=== PATIENT | female | born 1965 | race Two or more races ===

== ENCOUNTER 2025-06-17 16:17 | Inpatient (IN) | payer MEDICAID ==
[~2025-06-17] VITALS: Ht 160 cm; Wt 87.5 kg
[~2025-06-17 16:17] MED LIST: CEPH500C PO
--- NOTE | 2025-06-17 17:33 | DVH ---
EXAM: CT HEAD WITHOUT CONTRAST INDICATION: syncope TECHNIQUE: CT of the head without intravenous contrast. Radiation Dose : 1. Head: CT Dose: CTDI volume is 48.66 mGy. Dose-length product is 780.23 mGy*cm The dose indicators for CT are the volume Computed Tomography (CT) Dose Index (CTDIvol) and the Dose Length Product (DLP), and are measured in units of mGy and mGy-cm, respectively. These indicators are not patient dose, but values generated from the CT scanner acquisition factors. The report includes radiation exposure data for exposures received during this examination. COMPARISON: XY NASAL BONES 3+VIEWS on DOS: 09/01/23 FINDINGS: Evaluation is degraded by motion artifact. No acute territorial infarct, intracranial hemorrhage, or mass effect. There are global involutional changes with compensatory prominence of the ventricles and sulci. Patchy periventricular and subcorti mc white matter hypoattenuation is nonspecific but may be related to small vessel ischemic disease. The orbits are normal. There are fluid levels within the sphenoid sinuses. The paranasal sinuses and mastoid air cells are otherwise clear. The osseous structures are unremarkable. IMPRESSION: 1. No acute territorial infarct, intracranial hemorrhage, or mass effect. 2. Sphenoid sinus disease. 3. Age-related involutional changes. Chronic microvascular changes. 4. If clinical symptoms persist, MRI may be beneficial in further evaluation. Radiation optimization: All CT scans at this facility use at least one of these dose optimization mejia hniques: automated exposure control mA and/or kV adjustment per patient size (includes targeted exam s where dose is matched to clinical indication) or iterative reconstruction.
--- NOTE | 2025-06-17 17:34 | ED.PDOC ---
History of Present Illness HPI Comments 60-YEAR-OLD FEMALE PRESENTS TO THE CHIEF COMPLAINT OF A SYNCOPE. PATIENT REPORTS ON TAKING OZEMPIC FIVE DAYS AGO AND WAS OUT OF BEING QUITE HIGH LAST NIGHT WHEN SHE WAS SWEATING PROFUSELY. PATIENT HAS STARTED TO HAVE DIZZINESS AND WAS UNABLE TO SPEAK WELL WITH A SYNCOPAL EPISODE FAMILY WITNESSES. WHEN THE PATIENT WOKE UP FROM THERE SYNCOPAL EPISODE THEY INFORMED THE PATIENT THAT THEY RETURN A WEEK WRAPPED DUE FROM HER SHAKING PROFUSELY. AFTER THE SYNCOPAL EPISODE WITH THE PATIENT HAD AN EMESIS AND FELT BETTER BUT WAS TOLD DIZZY. PATIENT STATES ON GOING HOME AND TAKING NAUSEA MEDICATIONS. DENIES CHILLS, FEVER, /D, SOB, CP. NO OTHER ASSOCIATED SYMPTOMS, MODIFIERS, RECENT INJURIES OR SICK CONTACTS PRESENT AT THIS TIME. Chief Complaint: Syncope Time Seen by MD: 17:30 Primary Care Provider: JOLEEN Reviewed Notes: Nurses Notes, Medications, Allergies Allergies: Coded Allergies: Morphine (Verified Allergy, Unknown, 09/01/23) Home Meds Active Scripts Cephalexin Monohydrate (Cephalexin) 500 Mg Cap, 1 CAP PO QID, #32 CAP Prov:AMARA NORRIS 09/01/23 Information Source: Patient Mode of Arrival: Ambulatory Severity: Moderate Timing: Hours Duration: Since onset, Hours Prehospital treatment: None Past Medical History PAST MEDICAL HISTORY: Denies Surgical History: Denies all surgeries [employer] PSYCHOLOGIST History: No Pertinent [employer] PSYCHOLOGIST History Family History Family History: Reviewed,noncontributory to illness, Unknown Social History Smoker: Non-Smoker Alcohol: Denies ETOH Use Drugs: Denies Drug Use Lives In: Home Constitutional: denies: chills, diaphoresis, fatigue, fever, malaise, sweats, weakness, others EENTM: denies: blurred vision, double vision, ear bleeding, ear discharge, ear drainage, ear pain, ear ringing, eye pain, eye redness, hearing loss, mouth pain, mouth swelling, nasal discharge, nose bleeding, nose congestion, nose pain, photophobia, tearing, throat pain, throat swelling, voice changes, others Respiratory: denies: cough, hemoptysis, orthopnea, SOB at rest, shortness of breath, SOB with excertion, stridor, wheezing, others Cardiovascular: reports: syncope; denies: chest pain, dizzy spells, diaphoresis, Dyspnea on exertion, edema, irregular heart beat, left arm pain, lightheadedness, palpitations, PND, others Gastrointestinal: reports: nausea, vomiting; denies: abdomen distended, abdominal pain, blood streaked bowels, constipated, diarrhea, dysphagia, difficulty swallowing, hematemesis, melena, poor appetite, poor fluid intake, rectal bleeding, rectal pain, others Genitourinary: denies: abnormal vagina bleeding, burning, dyspareunia, dysuria, flank pain, frequency, hematuria, incontinence, pain, , vagina discharge, urgency, others Neurological: denies: dizziness, fainting, headache, left sided numbness, left sided weakness, numbness, paresthesia, pre-existing deficit, right sided numbness, right sided weakness, seizure, speech problems, tingling, tremors, weakness, others Musculoskeletal: denies: back pain, gout, joint pain, joint swelling, muscle pain, muscle stiffness, neck pain, others Integumetry: denies: bruises, change in color, change in hair/nails, dryness, laceration, lesions, lumps, rash, wounds, others Allergic/Immunocompromised: denies: Difficulty Healing, Frequent Infections, Hives, Itching, others Hematologic/Lymphatic: denies: anemia, blood clots, easy bleeding, easy bruising, swollen glands, others Endocrine: denies: excessive hunger, excessive sweating, excessive thirst, excessive urination, flushing, intolerance to cold, intolerance to heat, unexplained weight gain, unexplained weight loss, others Psychiatric: denies: anxiety, bipolar disorder, depression, hopeless, panic disorder, schizophrenia, sleepless, suicidal, others All Other Systems: Reviewed and Negative Physical Exam General Appearance: No Apparent Distress, Normal HEENT: Normal ENT Inspection, Pharynx Normal, TMs Normal Neck: Full Range of Motion, Non-Tender, Normal, Normal Inspection Respiratory: Chest Non-Tender, Lungs Clear, No Accessory Muscle Use, No Respiratory Distress, Normal Breath Sounds Cardiovascular: No Edema, No JVD, No Murmur, No Gallop, Normal Peripheral Pulses, Regular Rate/Rhythm Breast Exam: Deferred Gastrointestinal: No Organomegaly, Non Tender, No Pulsatile Mass, Normal Bowel Sounds, Soft Genitalia: Deferred Pelvic: Deferred Rectal: Deferred Extremities: No calf tenderness, Normal capillary refill, Normal inspection, Normal range of motion, Non-tender, No pedal edema Musculoskeletal : Apperance: Normal Neurologic: Alert, finisher hand II-XII nml as Tested, No Motor Deficits, Normal Affect, Normal Mood, No Sensory Deficits Cerebellar Function: Normal Reflexes: Normal Skin: Dry, Normal Color, Warm Lymphatic: No Adenopathy Was a procedure done? Was a procedure done?: No X-Ray, Labs, Meds, VS Vital Signs Date Time Temp Pulse Resp B/P (MAP) Pulse Ox O2 Delivery O2 Flow Rate FiO2 06/17/25 16:20 98.1 95 16 150/69 97 98.1 Time of 1ST Reevaluation: 18:00 Reevaluation 1ST: Unchanged Patient Education/Counseling: Diagnosis, Treatment, Prognosis Family Education/Counseling: No Family Present SEPSIS Sepsis Screen Date sepsis recognized/suspect: Jun 17, 2025 Time Sepsis recognized/suspect: 1624 Recent Procedure: No On Antibiotic Therapy: No Respiratory Rate >20: No Heart Rate >90: No Temp<36 C (96.8 F) or >38.3 C: No SBP <90 or MAP <65 mmHG: No New Acute Mental Status Change: No Is the patient on CPAP, BIPAP,: No Physician Orders Basic Metabolic Panel (06/17/25 16:36) Complete Blood Count (06/17/25 16:36) Troponin-I Hs (06/17/25 16:36) Urinalysis (06/17/25 16:36) Head Without Contrast (06/17/25 16:36) Electrocardigram (06/17/25 16:36) Chest Portable (06/17/25 16:36) Troponin-I Hs (06/17/25 17:36) Troponin-I Hs (06/17/25 19:36) Electrocardigram (06/17/25 17:36) Electrocardigram (06/17/25 19:36) Vital Signs Date Time Temp Pulse Resp B/P (MAP) Pulse Ox O2 Delivery O2 Flow Rate FiO2 06/17/25 16:20 98.1 95 16 150/69 97 98.1 Critical Care Note Critical Care Time?: No Stability Stability form required: No I personally scribed for MARQUES GUERRA MD ([email or web address]) on 06/17/25 at 17:34. Electronically submitted by Charan Dumont ([email or web address]). MARQUES GUERRA MD Jun 17, 2025 17:34
--- NOTE | 2025-06-17 17:53 | DVH ---
CHEST RADIOGRAPH Indication: syncope Technique: Single frontal view of the chest was obtained COMPARISON: None FINDINGS: Lines and Tubes: None Lungs: Clear Pleura: No effusion. No pneumothorax. Cardiomediastinal contours: Unremarkable Bones: Unremarkable IMPRESSION: No acute disease.
[2025-06-17 18:13] LABS: Hematocrit 38.7 % (36.0-46.0); Hemoglobin 13.2 g/dL (12.2-16.2); Mean Corpuscular Hemoglobin 30.5 pg (28.0-32.0); Mean Corpuscular Volume 89.6 fL (80.0-100.0); Nucleated Red Blood Cells % 0.0 %
[2025-06-17 18:19] LABS: Chloride 101 mmol/L (98-107); Potassium 3.6 mmol/L (3.5-5.1); Sodium 142 mmol/L (136-145)
[2025-06-17 18:20] LABS: Anion Gap 10 (5-15); Calcium 9.6 mg/dL (8.7-10.4); Carbon Dioxide 31 mmol/L (20-31)
[2025-06-17 18:23] LABS: Urine Budding Yeast OCCASIONAL /hpf (None Seen); Urine Protein, UAD TRACE (Negative)
[2025-06-17 18:25] LABS: BUN/Creatinine Ratio 20.0 (10.0-20.0); Glucose 88 mg/dL (74-106)
[2025-06-17 18:35] LABS: Blood Urea Nitrogen 27 mg/dL (9-23)
--- NOTE | 2025-06-17 20:34 | DVHHPRES ---
History of Present Illness Resident Creating Document: JAMMIE HWANG RESIDENT History of Present Illness This is a 60-year-old female with past medical history of hypertension, sciatica, osteoarthritis, chronic lower back pain, prediabetes, recurrent UTIs, presented to the ER with chief complain of dizziness since 1 day. Yesterday, she reported experiencing sweating, dizziness, followed by an episode of loss of consciousness. The episode was witnessed by the boyfriend, who elaborated further that she started sweating and was about to collapse but prevented from falling and hitting head by boyfriend. She exhibited shaking movements lasting for approximately 7 minutes, following this she regained consciousness without postictal confusion. She had 1 episode of vomiting. No tongue biting, urinary or incontinence or other stigmata of seizure was reported. The paramedics noted blood glucose 160, BP WNL. The patient also had burning micturition associated with nausea, chills since 1 day. She also complained of abdominal pain which started 1 week ago. The pain is located in the lower abdomen, described as cramping, 7/10, without aggravating or relieving factors. She has significant history of recurrent UTIs in the past, the most recent one was 5 months back for which she was treated with Keflex, after suboptimal response with Levaquin. Denies fever, hematuria, kidney stones. Previous hospitalization: 2 years back for UTI PMHx: Hypertension, sciatica, osteoarthritis, chronic lower back pain, prediabetes, recurrent UTIs PSHx: Appendectomy, benign cyst removal in left shoulder and right wrist Social history: Denies smoking, recreational drugs, occasional alcohol use. Currently sexually active with boyfriend. Full code, next of kin boyfriend (Danielito) Home medication: Ozempic, fexofenadine, docusate, Farxiga,Ztlido, lisinopril, baclofen, tramadol, naproxen, simethicone, cephalexin 500 mg for 7 days Allergic history: Morphine, penicillin allergy (unsure of reaction) Patient was examined at bedside today. Continues to experience dizziness, she is admitted for further evaluation and management. Review of Systems Constitutional: Yes: Chills, Weakness Cardiovascular: Lt Headedness Gastrointestinal: Nausea, Vomiting, Abdominal Pain Genitourinary: Dysuria Allergies: Coded Allergies: Morphine (Verified Allergy, Unknown, 09/01/23) Penicillins (Unverified Allergy, Unknown, 06/17/25) Exam Vital Signs Vital Signs Date Time Temp Pulse Resp B/P (MAP) Pulse Ox O2 Delivery O2 Flow Rate FiO2 06/17/25 19:51 98.4 84 14 141/84 (103) 97 98.4 Exam General: Patient is in visible distress. Patient alert and oriented in person, place and time. Patient following commands. HEENT: Normocephalic, atraumatic, dry mucous membranes Respiratory/pulmonary: Clear lungs bilaterally, vesicular murmurs present in almost all lung [place], no associated crackles or wheezes. Cardiovascular: S1, S2, S3 heard; No associated murmurs Abdomen: Tenderness in the lower abdomen on deep palpation. Extremities: There is no peripheral edema present at the lower extremities. Peripheral Pulses: 3+ Radial (R). 3+ Radial (L). 3+ Dorsalis pedis (R). 3+ Dorsalis pedis(L) Skin: No rashes or pruritus, there is no sacral edema present at this time. Neurological: Intact cranial nerves with no focal neurologic deficits Labs/Xrays Labs Test 06/17/25 18:31 06/17/25 17:38 06/17/25 16:36 Range/Units Troponin I High Sensitivity 7 </=34 ng/L White Blood Count 9.0 4.4-10.8 10^3/uL Red Blood Count 4.32 4.0-5.20 10^6/uL Hemoglobin 13.2 12.2-16.2 g/dL Hematocrit 38.7 36.0-46.0 % Mean Corpuscular Volume 89.6 80.0-100.0 fL Mean Corpuscular Hemoglobin 30.5 28.0-32.0 pg Mean Corpuscular Hemoglobin Concent 34.1 32.0-36.0 g/dL Red Cell Distribution Width 14.3 11.8-14.3 % Platelet Count 269 140-450 10^3/uL Mean Platelet Volume 7.9 6.9-10.8 fL Neutrophils (%) (Auto) 64.3 37.0-80.0 % Lymphocytes (%) (Auto) 27.4 10.0-50.0 % Monocytes (%) (Auto) 5.8 0.0-12.0 % Eosinophils (%) (Auto) 1.9 0.0-7.0 % Basophils (%) (Auto) 0.6 0.0-2.0 % Neutrophils # (Auto) 5.8 1.6-8.6 10 ^3/uL Lymphocytes # (Auto) 2.5 0.4-5.4 10 ^3/uL Monocytes # (Auto) 0.5 0-1.3 10 ^3/uL Eosinophils # (Auto) 0.2 0-0.8 10 ^3/uL Basophils # (Auto) 0.1 0-0.2 10 ^3/uL Nucleated Red Blood Cells 0.0 % Sodium Level 142 136-145 mmol/L Potassium Level 3.6 3.5-5.1 mmol/L Chloride Level 101 98-107 mmol/L Carbon Dioxide Level 31 20-31 mmol/L Anion Gap 10 5-15 Blood Urea Nitrogen 27 H 9-23 mg/dL Creatinine 1.35 H 0.550-1.02 mg/dL Glomerular Filtration Rate Calc 45 >90 mL/min BUN/Creatinine Ratio 20.0 10.0-20.0 Serum Glucose 88 74-106 mg/dL Calcium Level 9.6 8.7-10.4 mg/dL Urine Color Yellow Yellow Urine Clarity Turbid H Clear Urine pH 6.0 5.0-9.0 Urine Specific [place] 1.024 1.001-1.035 Urine Protein Trace H Negative Urine Ketones Trace Negative Urine Blood Negative Negative /uL Urine Nitrite Negative Negative Urine Bilirubin Negative Negative Urine Urobilinogen 2 H Negative mg/dL Urine Leukocyte Esterase 3+ Negative /uL Urine RBC <1 0 - 4 /hpf Urine Microscopic WBC 118 H 0-5 /HPF Urine Squamous Epithelial Cells Mod <5 /hpf Urine Bacteria Few H None Seen /hpf Urine Yeast (Budding) Occasional None Seen /hpf Urine Glucose Normal Normal mg/dL SEPSIS Sepsis Screen Date sepsis recognized/suspect: Jun 17, 2025 Time Sepsis recognized/suspect: 1624 Recent Procedure: No On Antibiotic Therapy: No Respiratory Rate >20: No Heart Rate >90: No Temp<36 C (96.8 F) or >38.3 C: No SBP <90 or MAP <65 mmHG: No New Acute Mental Status Change: No Is the patient on CPAP, BIPAP,: No Physician Orders Head Without Contrast (06/17/25 16:36) Electrocardigram (06/17/25 16:36) Chest Portable (06/17/25 16:36) Troponin-I Hs (06/17/25 19:36) Electrocardigram (06/17/25 17:36) Electrocardigram (06/17/25 19:36) Vital Signs Date Time Temp Pulse Resp B/P (MAP) Pulse Ox O2 Delivery O2 Flow Rate FiO2 06/17/25 19:51 98.4 84 14 141/84 (103) 97 98.4 06/17/25 16:20 98.1 95 16 150/69 97 98.1 Laboratory Tests Test 06/17/25 17:38 White Blood Count 9.0 10^3/uL (4.4-10.8) Assessment/Plan Assessment/Plan Complicated UTI History of recurrent UTIs [place] hemodynamic instability (VMN) U/A: positive for UTI Blood culture, urine culture ordered Gonorrhea, chlamydia, HIV test ordered Labs show elevated Creatinine. Creatinine Baseline N/A Started on IV Zosyn 3.75 mg q.8 IV Zofran, pain management with acetaminophen Avoiding nephrotoxins like NSAIDS, contrast Low salt diet, maintain hydration Repeat BMP Syncope, rule out cardiac causes Echocardiogram and carotid duplex ordered Orthostatic Vitals ordered EKG, troponin WNL Head CT: Shows no acute infarct or hemorrhage. Sphenoidal sinus disease CXR: No acute disease Monitor on telemetry for life-threatening arrhythmias Essential hypertension Continue Lisinopril 40 History of osteoarthritis Takes naproxen at home, avoiding during hospitalization due to [place] Obesity class 1 with BMI 34 Metabolic syndrome Hypertriglyceridemia Mixed hyperlipidemia Prediabetes Meet 4 on 5 criteria for metabolic syndrome Continue Ozempic 2.5 mg Q weekly ASCVD 5.5%, moderate intensity statin recommended Counseled on lifestyle and diet DIET: Cardiac DVT PROPHYLAXIS: Lovenox GI PROPHYLAXIS: Protonix CODE STATUS: Goals of care discussed with patient, boyfriend, nurses at bedside for more than 36 minutes. Full code DISPOSITION: Telemetry Patient's status and plan discussed with the patient. Case discussed with Dr. Cintron. Plan discussed with: Patient, Other (Nurses) Date of Service: Jun 17, 2025 Billing Provider: MERI CINTRON MD Common Visit Codes: 91486-[id number] INP/OBS CARE (HIGH) Secondary Visit Codes: 61422-[id number] CARE PLAN 30 MINUTES JAMMIE HWANG RESIDENT Jun 17, 2025 20:34 BRITTANY LICEA RESIDENT Jun 18, 2025 08:13
[2025-06-17 21:35] VITALS: PULSE 74; RESP 20; O2SAT 98
[2025-06-17 21:35] LABS: INR 0.98 (0.9-1.15); Partial Thromboplastin Time 25.9 SEC (24.5-34.5); Prothrombin Time 10.4 sec (9.3-11.8)
[2025-06-17] MEDS: ENOXAPARIN SOD 40 MG/0.4 ML SYRINGE SC SCH (21:45)
[2025-06-17] MEDS ORDERED: MORPHINE SULFATE INJ 2 MG/ml SYRG IV PRN (21:45)
[2025-06-17] MEDS ORDERED: ACETAMINOPHEN 325 MG TAB PO PRN (21:45)
[2025-06-17 22:22] LABS: Alanine Aminotransferase 14 U/L (7-40); Albumin 4.5 g/dL (3.2-4.8); Alkaline Phosphatase 71 U/L (46-116); HDL Cholesterol 46 mg/dL (40-59); Magnesium 2.1 mg/dL (1.6-2.6); Total Protein 7.4 g/dL (5.7-8.2)
[2025-06-17 22:23] LABS: Bilirubin, Total 0.4 mg/dL (0.2-1.0)
[2025-06-17 22:36] LABS: Bilirubin, Direct < 0.1 mg/dL (<0.3); Cholesterol 203 mg/dL (< 200); Triglycerides 181 mg/dL (< 150)
[2025-06-17 22:56] LABS: Lipase 34 U/L (12-53)
[2025-06-17 23:03] VITALS: BP 149/92; PULSE 77; RESP 17; TEMP 98.1; O2SAT 97
[2025-06-17 23:05] VITALS: BP 149/92; PULSE 77; RESP 17; TEMP 98.1; O2SAT 97
[2025-06-17 23:18] LABS: Opiate Scree,Urine Neg (NEGATIVE)
[2025-06-17 23:19] LABS: Amphetamine Screen, Urine Neg (NEGATIVE); Barbiturate Scree,Urine Neg (NEGATIVE); Benzodiazephine Screen, Urine Neg (NEGATIVE); Cannabinoid Screen, Urine Neg (NEGATIVE); Cocaine Screen, Urine Neg (NEGATIVE); Phencyclidine Screen, Urine Neg (NEGATIVE)
[2025-06-18] VITALS (8 sets, daily range): BP systolic 108–142; BP diastolic 66–82; PULSE 74–84; RESP 16–18; TEMP 97.6–98.3; O2SAT 94–98
[2025-06-18] MEDS: PANTOPRAZOLE 40 MG TAB PO ONE (00:08)
[2025-06-18] MEDS: LISINOPRIL 20 MG TAB PO ONE (00:09)
[2025-06-18] MEDS: ONDANSETRON HCL 4 MG/2 ML VIAL IV PRN (00:59)
[2025-06-18] MEDS: SODIUM CHLORIDE 0.9% 1,000 ML IV SCH (01:34)
[2025-06-18] MEDS: PIPERACILLIN-TAZOB 3.375GM 100 ML IV SCH ×2 (01:53→10:16)
[2025-06-18] MEDS: MAGNESIUM SULFATE 1GM/100ML 100 ML IV ONE (03:00)
[2025-06-18] MEDS: POTASSIUM EFFERVESENT TAB 25 MEQ PO ONE (05:19)
[2025-06-18] MEDS: PANTOPRAZOLE 40 MG TAB PO SCH (05:20)
[2025-06-18 06:39] LABS: Hematocrit 33.3 % (36.0-46.0); Hemoglobin 11.6 g/dL (12.2-16.2); Mean Corpuscular Hemoglobin 31.1 pg (28.0-32.0); Mean Corpuscular Volume 89.5 fL (80.0-100.0); Nucleated Red Blood Cells % 0.1 %
[2025-06-18 07:13] LABS: Alanine Aminotransferase 13 U/L (7-40); Albumin 3.5 g/dL (3.2-4.8); Alkaline Phosphatase 70 U/L (46-116); Anion Gap 10 (5-15); BUN/Creatinine Ratio 18.6 (10.0-20.0); Blood Urea Nitrogen 22 mg/dL (9-23); Calcium 8.8 mg/dL (8.7-10.4); Carbon Dioxide 27 mmol/L (20-31); Total Protein 5.8 g/dL (5.7-8.2)
[2025-06-18 07:16] LABS: Bilirubin, Total 0.3 mg/dL (0.2-1.0); Chloride 105 mmol/L (98-107); Glucose 120 mg/dL (74-106); Potassium 3.8 mmol/L (3.5-5.1); Sodium 142 mmol/L (136-145)
[2025-06-18] MEDS ORDERED: LISI40TA16 PO (08:19)
[2025-06-18] MEDS ORDERED: ROSU10TA16 PO (08:21)
[2025-06-18] MEDS ORDERED: BACL5TAB2 PO (08:22)
[2025-06-18] MEDS ORDERED: DOCU-265 PO (08:23)
--- NOTE | 2025-06-18 08:57 | DVH ---
CLINICAL HISTORY: Syncope TECHNIQUE: Mays-scale, Color and Duplex Doppler imaging of the bilateral carotid systems was performe d. COMPARISON: None Findings: Right Carotid system: There is plaque present in the right carotid system. Left Carotid system: There is plaque present in the left carotid system. The following flow velocities were obtained (cm/sec). Right Carotid System: ICA PSV: 90 cm/sec ICA PDV: 24 cm/sec ICA/CCA Ratio: 1.0 Left Carotid System: ICA PSV: 149 cm/sec ICA PDV: 41 cm/sec ICA/CCA Ratio: 1.9 The right and left common carotid and external carotid arteries are patent. There is antegrade flow i n both vertebral arteries and external carotid arteries. IMPRESSION: LESS THAN 50% RIGHT ICA NARROWING. 50-69% LEFT ICA NARROWING. Estimation of carotid stenosis is based on velocity parameters that correlate the residual internal c arotid diameter with that of the more distal vessel in accordance with the [place] Symptomatic Carotid Endarterectomy Trial (NASCET).
[2025-06-18] MEDS: LISINOPRIL 20 MG TAB PO SCH (10:14)
[2025-06-18] MEDS: CYANOCOBALAMIN (B-12) 1000 MCG/1 ML VIAL IM ONE (10:14)
[2025-06-18] MEDS ORDERED: IOHEXOL 350 MG/ML 100ML IJ ONE (11:27)
--- NOTE | 2025-06-18 12:06 | DVH ---
CLINICAL HISTORY: left cva tenderness TECHNIQUE: Complete ultrasound exam of the kidneys and bladder was performed. COMPARISON: None FINDINGS: The right kidney has normal echogenicity and measures 11.5 cm. There is no focal parenchymal abnormal ity or evidence for shadowing stone. There is no hydronephrosis. The left kidney has normal echogenicity and measures 10.3 cm. There is no focal parenchymal abnormal ity or evidence for shadowing stone. There is no hydronephrosis. The bladder is grossly unremarkable. IMPRESSION: NO SIGNIFICANT SONOGRAPHIC ABNORMALITY OF THE KIDNEYS.
--- NOTE | 2025-06-18 15:28 | DVHPNRES ---
Progress Note Date Seen: Jun 18, 2025 Resident Creating Document: JUANA TREVINO Medical Necessity Reason Pt with a Central, PICC or Fol: No Subjective Review of Systems Patient is a 60-year-old female with past medical history of hypertension, sciatica, osteoarthritis, chronic lower back pain, prediabetes, and recurrent urinary tract infections presented to [facility] ED with complaint of dizziness and nausea. Three days ago, she attended a alliance party in a hot environment and experienced sweating, dizziness, and a spinning sensation for 5- 10 minutes, followed by transient loss of consciousness. The event was witnessed by her boyfriend who prevented her from falling. She regained consciousness without postictal confusion. There was no tongue biting, urinary incontinence, or other stigmata of seizure. She experienced associated nausea and vomiting but denies true vertigo. The patient also reports burning with urination, nausea, and chills since the onset of symptoms. Additionally, she has been experiencing lower abdominal cramping pain for the past week, rated 7/10, without clear aggravating or relieving factors. She has a significant history of recurrent UTIs, with the most recent episode occurring 5 months ago, treated with Keflex after suboptimal response to Levaquin. She denies fever, hematuria, or history of kidney stones. The patient has been on Ozempic 2.5 mg weekly for approximately 78 months. She reports significant weight loss during this period. Urinalysis revealed dark urine, presence of bacteria, and a microscopic WBC count of 118. Past medical history: hypertension, sciatica, osteoarthritis, chronic lower back pain, prediabetes, and recurrent urinary tract infections Past surgical history: Appendectomy, benign cyst removal left shoulder and right wrist Social & Personal history: : Denies smoking, recreational drugs, patient will alcohol use Allergies: Coded Allergies: Morphine (Verified Allergy, Unknown, 09/01/23) Penicillins (Unverified Allergy, Unknown, 06/17/25) Patient seen and examined at bedside. Patient is alert and oriented to time, place person and responding to all questions. Constitutional: Chills, weakness Eyes: No Pain, No Vision change, No Conjunctivae inflammation, No Eyelid inflammation, No Other, No Redness ENT: No Ear pain, No Ear discharge, No Nose pain, No Nose discharge, No Nose congestion, No Mouth pain, No Mouth swelling, No Throat pain, No Throat swelling, No Other Cardiovascular: Lt Headedness. No Chest Pain, No Palpitations, No Orthopnea, No Paroxysmal No Dyspnea, No Edema, No Other Respiratory: No Cough, No Dry, No Shortness of breath, No SOB with exertion, No Wheezing, No Hemoptysis, No Pleuritic Pain, No Sputum, No Other Gastrointestinal: Nausea, Vomiting, Abdominal Pain, No Diarrhea, No Constipation, No Melena, No Hematochezia, No Other Genitourinary: Dysuria, No Frequency, No Incontinence, No Hematuria, No Retention, No Other Musculoskeletal: No other, No neck pain, No shoulder pain, No arm pain, No back pain, No hand pain, No leg pain, No foot pain Skin: No Rash, No Lesions, No Jaundice, No Bruising, No Other Objective vital signs Vital Sign Date Time Temp Pulse Resp B/P (MAP) Pulse Ox O2 Delivery O2 Flow Rate FiO2 06/18/25 10:14 124/75 06/18/25 09:00 98.1 74 18 96 98.1 06/17/25 21:35 Room Air* 0 21 Total Intake and Output 06/17/25 06/17/25 06/18/25 15:00 23:00 07:00 Intake Total 350 ml Balance 350 ml medications Current Medications Medications Dose Ordered Sig/Fuad Route Start Time Stop Time Status Last Admin Dose Admin Sodium Chloride 1,000 ml @ 120 mls/hr Q8H20M IV 06/17/25 21:45 06/18/25 01:34 120 MLS/HR Acetaminophen 325 mg Q4HP PRN PO 06/17/25 21:45 Ondansetron HCl 4 mg Q4HP PRN IV 06/17/25 21:45 06/18/25 00:59 4 MG Enoxaparin Sodium 40 mg DAILY SC 06/17/25 21:45 Pantoprazole Sodium 40 mg DAILY@0600 PO 06/18/25 06:00 06/18/25 05:20 40 MG Lisinopril 40 mg DAILY PO 06/18/25 10:00 06/18/25 10:14 40 MG Ceftriaxone Sodium 50 ml @ 100 mls/hr DAILY@09 IV 06/19/25 09:00 Examination General: Patient is in visible distress. Patient alert and oriented in person, place and time. Patient following commands. HEENT: Normocephalic, atraumatic, dry mucous membranes Respiratory/pulmonary: Clear lungs bilaterally, vesicular murmurs present in almost all lung [place], no associated crackles or wheezes. Cardiovascular: S1, S2, S3 heard; No associated murmurs Abdomen: Left CVA tenderness. Tenderness in the lower abdomen on deep palpation. Extremities: There is no peripheral edema present at the lower extremities. Peripheral Pulses: 3+ Radial (R). 3+ Radial (L). 3+ Dorsalis pedis (R). 3+ Dorsalis pedis(L) Skin: No rashes or pruritus, there is no sacral edema present at this time. Neurological: Intact cranial nerves with no focal neurologic deficits laboratory and microbiology Laboratory Tests 06/18/25 06:04 Test 06/18/25 06:04 Range/Units Serum Glucose 120 H 74-106 mg/dL Labs and/or images reviewed: Labs reviewed by me, Image(s) reviewed by me Problem List/Assessment/Plan Problem List/Assessment/Plan #Complicated UTI #History of recurrent UTIs #ROSE MARIE hemodynamic instability (VMN) -U/A: positive for UTI -Blood culture, urine culture ordered -Gonorrhea, chlamydia, HIV test ordered -Labs show elevated Creatinine. Creatinine Baseline N/A -NS 120 MLS/HR -Started on IV Zosyn 3.75 mg q.8 -IV Zofran, pain management with acetaminophen -Ceftriaxone -Avoiding nephrotoxins like NSAIDS, contrast -Low salt diet, maintain hydration -Repeat BMP #Syncope, rule out cardiac causes -EKG, troponin WNL -Head CT: Shows no acute infarct or hemorrhage. Sphenoidal sinus disease -CXR: No acute disease -Carotid Doppler Study: LESS THAN 50% RIGHT ICA NARROWING. 50-69% LEFT ICA NARROWING. Estimation of carotid stenosis is based on velocity parameters that correlate the residual internal carotid -Neck MRI: No significant MRA abnormality of the neck. -Monitor on telemetry for life-threatening arrhythmias #Essential hypertension -Continue Lisinopril 40 #History of osteoarthritis -Takes naproxen at home, avoiding during hospitalization due to RO[place] MARIE #Obesity class 1 with BMI 34 #Metabolic syndrome #Hypertriglyceridemia #Mixed hyperlipidemia #Prediabetes -Meet 4 on 5 criteria for metabolic syndrome -Continue Ozempic 2.5 mg Q weekly -ASCVD 5.5%, moderate intensity statin recommended -Counseled on lifestyle and diet DIET: Cardiac PUD prophylaxis: protonix 40mg DVT prophylaxis: Levonox 40mg Goals of care: Full code, discussed for >16 minutes on 06/18/25 Plan discussed with patient Plan discussed with Dr. Resendiz Plan discussed with: Patient My Orders My Orders Orders - JUANA TREVINO Procedure Category Date Status Time Mra Angio Of Neck MRI 06/18/25 Logged 13:22 Date of Service: Jun 18, 2025 Billing Provider: RAFI RESENDIZ MD Common Visit Codes: 62445-[id number] INP/OBS CARE(HIGH) Secondary Visit Codes: 24555-[id number] CARE PLAN 30 MINUTES JUANA TREVINO Jun 18, 2025 15:28 RAFI RESENDIZ MD Jun 20, 2025 00:28
--- NOTE | 2025-06-18 16:58 | DVH ---
EXAM: MRI MRA ANGIO OF NECK DATE OF SERVICE: 06/18/2025 03:47 PM ORDERING PHYSICIAN: JUANA TREVINO REASON FOR EXAM: dizziness TECHNIQUE: MRA images of the neck were acquired without IV contrast. COMPARISON: US CAROTID DUPLX W COLOR DOP on DOS: 06/18/25 FINDINGS: Evaluation is limited, given the left common carotid and vertebral artery origins are not imaged. The common carotid, internal carotid, and vertebral arteries are patent with no evidence for high-gra de stenosis, occlusion, or dissection. There is no significant narrowing at the carotid bulbs per MAINOR CET criteria. IMPRESSION: No significant MRA abnormality of the neck.
[2025-06-19 01:00] VITALS: BP 150/80; PULSE 81; RESP 16; TEMP 98; O2SAT 96
[2025-06-19 05:00] VITALS: BP 137/76; PULSE 72; RESP 16; TEMP 98.1; O2SAT 96
[2025-06-19 06:24] LABS: Hematocrit 33.5 % (36.0-46.0); Hemoglobin 11.6 g/dL (12.2-16.2); Mean Corpuscular Hemoglobin 31.0 pg (28.0-32.0); Mean Corpuscular Volume 89.8 fL (80.0-100.0); Nucleated Red Blood Cells % 0.0 %
[2025-06-19 06:33] LABS: Anion Gap 7 (5-15); Carbon Dioxide 30 mmol/L (20-31); Chloride 106 mmol/L (98-107); Potassium 3.8 mmol/L (3.5-5.1); Sodium 143 mmol/L (136-145)
[2025-06-19 06:37] LABS: Calcium 8.5 mg/dL (8.7-10.4)
[2025-06-19 06:39] LABS: BUN/Creatinine Ratio 18.2 (10.0-20.0); Blood Urea Nitrogen 18 mg/dL (9-23); Glucose 92 mg/dL (74-106)
--- NOTE | 2025-06-19 07:56 | ECG ---
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
[2025-06-19 08:00] VITALS: PULSE 78
[2025-06-19 09:00] VITALS: BP 150/84; PULSE 86; RESP 17; TEMP 98.3; O2SAT 97
--- NOTE | 2025-06-19 12:08 | DVHSR ---
APPROVED REPORT EXAM: Two-dimensional and M-mode echocardiogram with Doppler and color Doppler. Blood Pressure: 108/66 mmHg INDICATION Syncope RISK FACTORS Height: 63, Weight: 192 DIMENSIONS LVDd4.0 (3.8-5.7cm)LA (2D)3.5 (1.9-4.0cm)Aortic Root3.2 (2.0-3.7cm) LVDs2.6 (2.5-4.0cm)LA (MM) (1.9-4.0cm)Aortic Cusp Exc1.5 (1.5-2.0cm) EF (%) 67.0 (55-70%)Rt. Atrium3.0 (1.9-4.0cm)Asc. Aorta cm Mitral Valve MitralMitral Stenosis E wave0.61m/sMV Mean GR.mmHg A wave0.76m/sMV Peak GR.77mmHg E/A ratio0.82D MVAcm2 DECEL [id number] 1/2 [id number] IVRTmsDop MVA3.32cm2 Aortic Valve Aortic ValveAortic Stenosis V11.17m/Laci Mean GR.5mmHg V21.54m/Laci Peak GR.10mmHg LVOT Diameter2.0 (1.8-2.4cm)Doppler AVA2.39cm2 Pulmonic Valve V20.98m/s Other Information Technically limited study due to body habitus. Conclusion LV EF IS 65% AND IS NORMAL NORMAL VALVES NORMAL RV FUNCTION NO EFFUSION
[2025-06-19 13:00] VITALS: BP 143/91; PULSE 73; RESP 17; TEMP 97.8; O2SAT 98
--- NOTE | 2025-06-19 13:56 | DVHDSRES ---
Discharge Summary Date of Admission Resident Creating Document: JUANA TREVINO RESIDENT Jun 17, 2025 at 21:42 Date of Discharge: Jun 19, 2025 Admitting Diagnosis Dizziness Labs/Diagnostic Data: Laboratory Results Test 06/19/25 06:09 06/18/25 06:04 06/17/25 22:14 06/17/25 17:40 White Blood Count 7.0 10^3/uL (4.4-10.8) Red Blood Count 3.73 10^6/uL (4.0-5.20) Hemoglobin 11.6 g/dL (12.2-16.2) Hematocrit 33.5 % (36.0-46.0) Mean Corpuscular Volume 89.8 fL (80.0-100.0) Mean Corpuscular Hemoglobin 31.0 pg (28.0-32.0) Mean Corpuscular Hemoglobin Concent 34.5 g/dL (32.0-36.0) Red Cell Distribution Width 14.0 % (11.8-14.3) Platelet Count 183 10^3/uL (140-450) Mean Platelet Volume 7.7 fL (6.9-10.8) Neutrophils (%) (Auto) 56.2 % (37.0-80.0) Lymphocytes (%) (Auto) 33.5 % (10.0-50.0) Monocytes (%) (Auto) 6.7 % (0.0-12.0) Eosinophils (%) (Auto) 2.8 % (0.0-7.0) Basophils (%) (Auto) 0.8 % (0.0-2.0) Neutrophils # (Auto) 4.0 10 ^3/uL (1.6-8.6) Lymphocytes # (Auto) 2.4 10 ^3/uL (0.4-5.4) Monocytes # (Auto) 0.5 10 ^3/uL (0-1.3) Eosinophils # (Auto) 0.2 10 ^3/uL (0-0.8) Basophils # (Auto) 0.1 10 ^3/uL (0-0.2) Nucleated Red Blood Cells 0.0 % Sodium Level 143 mmol/L (136-145) Potassium Level 3.8 mmol/L (3.5-5.1) Chloride Level 106 mmol/L (98-107) Carbon Dioxide Level 30 mmol/L (20-31) Anion Gap 7 (5-15) Blood Urea Nitrogen 18 mg/dL (9-23) Creatinine 0.99 mg/dL (0.550-1.02) Glomerular Filtration Rate Calc 66 mL/min (>90) BUN/Creatinine Ratio 18.2 (10.0-20.0) Serum Glucose 92 mg/dL (74-106) Calcium Level 8.5 mg/dL (8.7-10.4) Total Bilirubin 0.3 mg/dL (0.2-1.0) Aspartate Amino Transferase (AST) 15 U/L (13-40) Alanine Aminotransferase (ALT) 13 U/L (7-40) Alkaline Phosphatase 70 U/L (46-116) Total Protein 5.8 g/dL (5.7-8.2) Albumin 3.5 g/dL (3.2-4.8) Treponema pallidum Antibody Non-reactive (Negative) HIV (1&2) Antibody Negative (Negative) Troponin I High Sensitivity 5 ng/L (</=34) Urine Opiates Screen Neg (NEGATIVE) Urine Fentanyl Screen Neg (NEGATIVE) Urine Barbiturates Screen Neg (NEGATIVE) Urine Phencyclidine Screen Neg (NEGATIVE) Urine Amphetamines Screen Neg (NEGATIVE) Urine Benzodiazepines Screen Neg (NEGATIVE) Urine Cocaine Screen Neg (NEGATIVE) Urine Cannabinoids Screen Neg (NEGATIVE) Test 06/17/25 17:38 06/17/25 16:36 Prothrombin Time 10.4 sec (9.3-11.8) Prothrombin Time INR 0.98 (0.9-1.15) Activated Partial Thromboplast Time 25.9 SEC (24.5-34.5) Hemoglobin A1c 5.5 % A1C (<5.7) Phosphorus Level 3.9 mg/dL (2.4-5.1) Magnesium Level 2.1 mg/dL (1.6-2.6) Direct Bilirubin < 0.1 mg/dL (<0.3) C-Reactive Protein High Sensitivity 0.99 mg/dL (<1.0) Triglycerides Level 181 mg/dL (< 150) Cholesterol Level 203 mg/dL (< 200) LDL Cholesterol 125 mg/dL (< 100) HDL Cholesterol 46 mg/dL (40-59) Lipase 34 U/L (12-53) Vitamin B12 Level 299 pg/mL (211-911) Vitamin D 25-Hydroxy 37.0 ng/mL (30.0-100) Thyroid Stimulating Hormone (TSH) 1.61 uIU/mL (0.55-4.78) Urine Color Yellow (Yellow) Urine Clarity Turbid (Clear) Urine pH 6.0 (5.0-9.0) Urine Specific [place] 1.024 (1.001-1.035) Urine Protein Trace (Negative) Urine Ketones Trace (Negative) Urine Blood Negative /uL (Negative) Urine Nitrite Negative (Negative) Urine Bilirubin Negative (Negative) Urine Urobilinogen 2 mg/dL (Negative) Urine Leukocyte Esterase 3+ /uL (Negative) Urine RBC <1 /hpf (0 - 4) Urine Microscopic WBC 118 /HPF (0-5) Urine Squamous Epithelial Cells Mod /hpf (<5) Urine Bacteria Few /hpf (None Seen) Urine Yeast (Budding) Occasional /hpf (None Urine Glucose Normal mg/dL (Normal) Other Laboratory Tests 06/19/25 06:09 Brief Hx & Hospital Course: The patient is a 60-year-old female with a history of hypertension, osteoarthritis, chronic back pain, prediabetes, and recurrent UTIs who presented to the ED with complaints of dizziness, nausea, and chills. Three days prior to admission, she experienced a syncopal episode while at an outdoor green party in a hot environment. The episode was preceded by sweating and a spinning sensation and lasted 510 minutes. There was no postictal confusion, tongue biting, or incontinence. The event was witnessed by her boyfriend. She also reported burning with urination, nausea, and lower abdominal cramping for the past week. She has a history of recurrent UTIs, most recently treated 5 months ago. Urinalysis showed dark urine, bacteria, and WBCs (118), consistent with a complicated UTI. She denied fever or hematuria. Initial evaluation revealed signs of a complicated urinary tract infection with elevated WBCs in urine and left CVA tenderness, along with acute kidney injury (ROSE MARIE) likely due to volume depletion. She was started on IV Zosyn, Ceftriaxone, and IV fluids, with nephrotoxic agents avoided. Pain and nausea were managed with acetaminophen and Zofran. A full syncope workup was performed, including EKG, troponin, head CT, carotid Doppler, and neck MRI, all of which showed no acute abnormalities. She was monitored on telemetry with no arrhythmias observed. Her chronic conditions were managed appropriately: lisinopril was continued for hypertension, Ozempic for prediabetes and metabolic syndrome, and NSAIDs were held due to ROSE MARIE. She was counseled on lifestyle modifications and advised to follow up for further evaluation of recurrent UTIs and cardiovascular risk. The patient was discharged in stable condition, alert and oriented, tolerating oral intake, and ambulating independently. Symptoms of dizziness and nausea had resolved. She was advised to maintain hydration, avoid nephrotoxins, and adhere to follow-up appointments. Physical examination on the day of discharge: General: Patient is in visible distress. Patient alert and oriented in person, place and time. Patient following commands. HEENT: Normocephalic, atraumatic, dry mucous membranes Respiratory/pulmonary: Clear lungs bilaterally, vesicular murmurs present in almost all lung [place], no associated crackles or wheezes. Cardiovascular: S1, S2, S3 heard; No associated murmurs Abdomen: Left CVA tenderness. Tenderness in the lower abdomen on deep palpation. Extremities: There is no peripheral edema present at the lower extremities. Peripheral Pulses: 3+ Radial (R). 3+ Radial (L). 3+ Dorsalis pedis (R). 3+ Dorsalis pedis(L) Skin: No rashes or pruritus, there is no sacral edema present at this time. Neurological: Intact cranial nerves with no focal neurologic deficits Echo results reviewed with the patient: LV EF IS 65% AND IS NORMAL NORMAL VALVES NORMAL RV FUNCTION NO EFFUSION Goals of care discussed with the patient for 20 minutes; full code Discussed with Dr. Cueto Operations or Procedures PATIENT: RAÚL MOLINA ACCT: [id number] UNIT: [id number] : 1965 LOC: [facility]LE-[facility] ROOM / BED: [address] [place] [address] AGE / SEX: 60 / F ADM STATUS: ADM IN SERVICE 1322 ORDERING PHYSICIAN: JUANA TREVINO PROCEDURE(s): MRAN - MRA ANGIO OF NECK REASON: ORDER NUMBER(s): [id number], ACCESSION NUMBER(s): [id number] EXAM: MRI MRA ANGIO OF NECK DATE OF SERVICE: 06/18/2025 03:47 PM ORDERING PHYSICIAN: JUANA TREVINO REASON FOR EXAM: dizziness TECHNIQUE: MRA images of the neck were acquired without IV contrast. COMPARISON: US CAROTID DUPLX W COLOR DOP on DOS: 06/18/25 FINDINGS: Evaluation is limited, given the left common carotid and vertebral artery origins are not imaged. The common carotid, internal carotid, and vertebral arteries are patent with no evidence for high-grade stenosis, occlusion, or dissection. There is no significant narrowing at the carotid bulbs per NASCET criteria. IMPRESSION: No significant MRA abnormality of the neck. -------- PATIENT: RAÚL MOLINA ACCT: [id number] UNIT: [id number] : 1965 LOC: [facility] ROOM / BED: [address] [place] [address] AGE / SEX: 60 / F ADM STATUS: ADM IN SERVICE 1042 ORDERING PHYSICIAN: RAZA CROWDER RESIDENT PROCEDURE(s): KIDUS - KIDNEY REASON: left cva tenderness ORDER NUMBER(s): [id number], ACCESSION NUMBER(s): [id number] CLINICAL HISTORY: left cva tenderness TECHNIQUE: Complete ultrasound exam of the kidneys and bladder was performed. COMPARISON: None FINDINGS: The right kidney has normal echogenicity and measures 11.5 cm. There is no focal parenchymal abnormality or evidence for shadowing stone. There is no hydronephrosis. The left kidney has normal echogenicity and measures 10.3 cm. There is no focal parenchymal abnormality or evidence for shadowing stone. There is no hydronephrosis. The bladder is grossly unremarkable. IMPRESSION: NO SIGNIFICANT SONOGRAPHIC ABNORMALITY OF THE KIDNEYS. -------- PATIENT: RAÚL MOLINA ACCT: [id number] UNIT: [id number] : 1965 LOC: [facility]GE / SEX: 60 / F ADM STATUS: ADM IN SERVICE 030 ORDERING PHYSICIAN: BRITTANY LICEA RESIDENT PROCEDURE(s): CARCL - CAROTID DUPLX W COLOR DOP REASON: Syncope ORDER NUMBER(s): [id number], ACCESSION NUMBER(s): [id number] CLINICAL HISTORY: Syncope TECHNIQUE: Mays-scale, Color and Duplex Doppler imaging of the bilateral carotid systems was performed. COMPARISON: None Findings: Right Carotid system: There is plaque present in the right carotid system. Left Carotid system: There is plaque present in the left carotid system. The following flow velocities were obtained (cm/sec). Right Carotid System: ICA PSV: 90 cm/sec ICA PDV: 24 cm/sec ICA/CCA Ratio: 1.0 Left Carotid System: ICA PSV: 149 cm/sec ICA PDV: 41 cm/sec ICA/CCA Ratio: 1.9 The right and left common carotid and external carotid arteries are patent. There is antegrade flow in both vertebral arteries and external carotid arteries. IMPRESSION: LESS THAN 50% RIGHT ICA NARROWING. 50-69% LEFT ICA NARROWING. Estimation of carotid stenosis is based on velocity parameters that correlate the residual internal carotid diameter with that of the more distal vessel in accordance with the [place] Symptomatic Carotid Endarterectomy Trial (NASCET). -------- PATIENT: RAÚL MOLINA ACCT: [id number] UNIT: [id number] : 1965 LOC: ER ROOM / BED: / AGE / SEX: 60 / F ADM STATUS: REG ER SERVICE 1636 ORDERING PHYSICIAN: MARQUES GUERRA MD PROCEDURE(s): HWOCT - HEAD WITHOUT CONTRAST REASON: syncope ORDER NUMBER(s): [id number], ACCESSION NUMBER(s): [id number] EXAM: CT HEAD WITHOUT CONTRAST INDICATION: syncope TECHNIQUE: CT of the head without intravenous contrast. Radiation Dose : 1. Head: CT Dose: CTDI volume is 48.66 mGy. Dose-length product is 780.23 mGy*cm The dose indicators for CT are the volume Computed Tomography (CT) Dose Index (CTDIvol) and the Dose Length Product (DLP), and are measured in units of mGy and mGy-cm, respectively. These indicators are not patient dose, but values generated from the CT scanner acquisition factors. The report includes radiation exposure data for exposures received during this examination. COMPARISON: XY NASAL BONES 3+VIEWS on DOS: 09/01/23 FINDINGS: Evaluation is degraded by motion artifact. No acute territorial infarct, intracranial hemorrhage, or mass effect. There are global involutional changes with compensatory prominence of the ventricles and sulci. Patchy periventricular and subcortical white matter hypoattenuation is nonspecific but may be related to small vessel ischemic disease. The orbits are normal. There are fluid levels within the sphenoid sinuses. The paranasal sinuses and mastoid air cells are otherwise clear. The osseous structures are unremarkable. IMPRESSION: 1. No acute territorial infarct, intracranial hemorrhage, or mass effect. 2. Sphenoid sinus disease. 3. Age-related involutional changes. Chronic microvascular changes. 4. If clinical symptoms persist, MRI may be beneficial in further evaluation. Radiation optimization: All CT scans at this facility use at least one of these dose optimization techniques: automated exposure control mA and/or kV adjustment per patient size (includes targeted exams where dose is matched to clinical indication) or iterative reconstruction. -------- PATIENT: RAÚL MOLINA ACCT: [id number] UNIT: [id number] : 1965 LOC: ER ROOM / BED: / AGE / SEX: 60 / F ADM STATUS: REG ER SERVICE 1636 ORDERING PHYSICIAN: MARQUES GUERRA MD PROCEDURE(s): CXRP - CHEST PORTABLE REASON: syncope ORDER NUMBER(s): [id number], ACCESSION NUMBER(s): [id number] CHEST RADIOGRAPH Indication: syncope Technique: Single frontal view of the chest was obtained COMPARISON: None FINDINGS: Lines and Tubes: None Lungs: Clear Pleura: No effusion. No pneumothorax. Cardiomediastinal contours: Unremarkable Bones: Unremarkable IMPRESSION: No acute disease. 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 DICTATED BY: DICTATED DATE/TIME:06/18/25311 - ------- PATIENT: RAÚL MOLINA ACCT: [id number] UNIT: [id number] : 1965 LOC: [facility] ROOM / BED: [address] [place] [address] AGE / SEX: 60 / F ADM STATUS: ADM IN SERVICE 41 ORDERING PHYSICIAN: JAMMIE HWANG RESIDENT PROCEDURE(s): ECIDC - ECHO 2D MODE CARDIAC DOP REASON: Syncope ORDER NUMBER(s): [id number], ACCESSION NUMBER(s): [id number] APPROVED REPORT EXAM: Two-dimensional and M-mode echocardiogram with Doppler and color Doppler. Blood Pressure: 108/66 mmHg INDICATION Syncope RISK FACTORS Height: 63, Weight: 192 DIMENSIONS LVDd 4.0 (3.8-5.7cm) LA (2D) 3.5 (1.9-4.0cm) Aortic Root 3.2 (2.0- 3.7cm) LVDs 2.6 (2.5-4.0cm) LA (MM) (1.9-4.0cm) Aortic Cusp Exc 1.5 (1.5- 2.0cm) EF (%) 67.0 (55-70%) Rt. Atrium 3.0 (1.9-4.0cm) Asc. Aorta cm Mitral Valve Mitral Mitral Stenosis E wave 0.61m/s MV Mean GR. mmHg A wave 0.76m/s MV Peak GR. 77mmHg E/A ratio 0.8 2D MVA cm2 DECEL Time 272ms PRESS 1/2 Time 66ms IVRT ms Dop MVA 3.32cm2 Aortic Valve Aortic Valve Aortic Stenosis V1 1.17m/s AO Mean GR. 5mmHg V2 1.54m/s AO Peak GR. 10mmHg LVOT Diameter 2.0 (1.8-2.4cm) Doppler MARIO 2.39cm2 Pulmonic Valve V2 0.98m/s Other Information Technically limited study due to body habitus. Conclusion LV EF IS 65% AND IS NORMAL NORMAL VALVES NORMAL RV FUNCTION NO EFFUSION SIGNED BY: ELOISA CLANCY MD SIGNED DATE/TIME: 06/19/25 1208 Condition at Discharge: Stable Final Diagnosis/Problems List #Complicated UTI #History of recurrent UTIs #ROSE MARIE hemodynamic instability (VMN) #Syncope, ruled out cardiac causes #Essential hypertension #History of osteoarthritis #Obesity class 1 with BMI 34 #Metabolic syndrome #Hypertriglyceridemia #Mixed hyperlipidemia #Prediabetes; the patient is Ozempic that is FDA approved only for diabetes mellitus type 2 Discharge Disposition: Home Discharge Instruct/Medications Diet: Regular Activity: No Restrictions, As Tolerated Follow Up/Referral: Follow up with PCP in 1-2 weeks. Medications: as per EMR continue home medications; to continue oral antibiotic nitrofurantoin Scheduled Baclofen (Baclofen), 1 PO DAILY, (Reported) Docusate Sodium (Docusate Sodium), 1 CAP PO DAILY, (Reported) Lisinopril (Lisinopril), 1 TAB PO DAILY Nitrofurantoin (Nitrofurantoin), 100 MG PO BID Rosuvastatin Calcium (Crestor), 1 TAB PO HS Discharge Statement: "Patient was advised to return to the ER or call 911 if any headaches, dizziness, shortness of breath, chest pain, abdominal pain, bleeding, fevers, or worsening of medical condition. Patient was counseled about treatment plan, medications, possible side effects, patientverbalized understanding. All questions were answered to the best of my ability. This discharge took greater then 30 minutes in planning, reviewing documentation, counseling the patient, and discussing with other team members." ASSESSMENT ASSESSMENT Assessment #Complicated UTI #History of recurrent UTIs #ROSE MARIE hemodynamic instability (VMN) #Syncope, ruled out cardiac causes #Essential hypertension #History of osteoarthritis #Obesity class 1 with BMI 34 #Metabolic syndrome #Hypertriglyceridemia #Mixed hyperlipidemia #Prediabetes Date of Service: Jun 19, 2025 Billing Provider: MARVIN CUETO MD Common Visit Codes: 86995-UCE/OBS DISCH DAY >30min Secondary Visit Codes: 36936-[id number] CARE PLAN 30 MINUTES (20 minutes) Addendum Addendum Addendum I was physically present for the purdy portions of the service provided to patient by THE RESIDENT. I have reviewed the documentation, discussed the case with resident and agree with the resident's documentation except as noted. Also the patient's clinical case was discussed with the patient's nurse. This medical document was created using an electronic medical record system with computerized dictation system. Although this document has been carefully reviewed, there might still be some phonetic and typographical errors. These areas are purely typographical due to imperfections of the software programs, and do not reflect any compromise in the patient's medical care. Late signature. JUANA TREVINO RESIDENT Jun 19, 2025 13:56 MARVIN CUETO MD Jun 21, 2025 12:21
[2025-06-19] MEDS ORDERED: NITR-52 PO (15:00)
[2025-06-19] MEDS ORDERED: LISI40TA16 PO (15:00)
[2025-06-19] MEDS ORDERED: ROSU10TA16 PO (15:00)
[2025-06-22 10:31] LABS: Hepatitis B Surface Antigen Negative (Negative); Hepatitis C Antibody Negative (Negative)
== END 2025-06-19 17:20 | disposition home or self-care (01) | DRG 463 ==
LOC: ER 16:17 → OVERFLOW 21:42 → TELE-CENTR 23:03
PROVIDERS: ADMIT Internal Medicine; ATTEND Internal Medicine
DX: N39.0 Urinary tract infection, site not specified (principal); N17.0 Acute kidney failure with tubular necrosis; E88.810 Metabolic syndrome; E66.811 Obesity, class 1; E78.1 Pure hyperglyceridemia; E78.2 Mixed hyperlipidemia; Z68.34 Body mass index [BMI] 34.0-34.9, adult; I10 Essential (primary) hypertension; Z88.5 Allergy status to narcotic agent
CPT/HCPCS: 36415; 70450; 70547; 71045; 76775; 80048; 80053; 80061; 80074; 80076; 80307; 81001; 82306; 82607; 83036; 83690; 83735; 84100; 84443; 84484; 85025; 85610; 85730; 86141; 86703; 86780; 87040; 87086; 93005; 93306; 93886; G0378; J2405; J2543